=== PATIENT | female | born 1980 | race Caucasian/White ===

== ENCOUNTER → 2022-07-18 | Outpatient (CLI) | payer OTHER ==
[2022-07-19 09:13] LABS: IMMUNOGLOBULIN A, QN, SERUM <5 mg/dL (87-352); IMMUNOGLOBULIN G, QN, SERUM 1015 mg/dL (586-1602); IMMUNOGLOBULIN M, QN, SERUM <5 mg/dL (26-217)
[2022-07-19 16:09] LABS: % CD 3 POS. LYMPH. 91.1 % (57.5-86.2); % CD 4 POS. LYMPH. 36.5 % (30.8-58.5); % CD 8 POS. LYMPH. 56.4 % (12.0-35.5); % CD3+CD25+ LYMPHS 13.2 % (4.9-25.9); % CD8+CD57+ LYMPHS 29.9 % (0.0-11.3); ABS.CD3+CD25+ LYMPHS 211 /uL (79-535); ABS.CD8+CD57+ LYMPHS 478 /uL (0-254); ABSOLUTE CD 3 1458 /uL (622-2402); ABSOLUTE CD 4 HELPER 584 /uL (359-1519); ABSOLUTE CD 8 (SUPP) 902 /uL (109-897); BASOS 0 % (Not Estab.); CD4/CD8 RATIO 0.65 (0.92-3.72); EOS 1 % (Not Estab.); EOS (ABSOLUTE) 0.1 x10E3/uL (0.0-0.4); HEMATOCRIT 40.4 % (34.0-46.6); HEMOGLOBIN 13.2 g/dL (11.1-15.9); IMMATURE GRANULOCYTES 0 % (Not Estab.); LYMPHS 19 % (Not Estab.); LYMPHS (ABSOLUTE) 1.6 x10E3/uL (0.7-3.1); MCH 29.8 pg (26.6-33.0); MCHC 32.7 g/dL (31.5-35.7); MCV 91 fL (79-97); MONOCYTES 7 % (Not Estab.); MONOCYTES(ABSOLUTE) 0.6 x10E3/uL (0.1-0.9); NEUTROPHILS 73 % (Not Estab.); NEUTROPHILS (ABSOLUTE) 5.9 x10E3/uL (1.4-7.0); PLATELETS 173 x10E3/uL (150-450); RBC 4.43 x10E6/uL (3.77-5.28); RDW 13.8 % (11.7-15.4); WBC 8.1 x10E3/uL (3.4-10.8)
== END | disposition home or self-care (01) ==
LOC: LAB SHORT 06:00 → LAB 06:00
PROVIDERS: Internal Medicine
DX: R05.3 Chronic cough (principal); D83.9 Common variable immunodeficiency, unspecified
CPT/HCPCS: 36415; 82784; 86356; 86357; 86359; 86360

== ENCOUNTER → 2022-10-15 | Outpatient (CLI) | payer OTHER ==
[2022-10-16 15:07] LABS: Campylobacter Sp Not Detected (NOT DETECT)
[2022-10-16 15:08] LABS: Adenovirus F 40/41 Not Detected (NOT DETECT); Astrovirus Not Detected (NOT DETECT); Cryptosporidium Not Detected (NOT DETECT); Cyclospora Cayetanensis Not Detected (NOT DETECT); E. Coli O157 Not Detected (NOT DETECT); Entamoeba Histolytica Not Detected (NOT DETECT); Enteroaggregative E. coli-EAEC Detected (NOT DETECT); Enteropathogenic E. coli-EPEC Detected (NOT DETECT); Enterotoxigenic E. coli-ETEC Not Detected (NOT DETECT); Giardia Lamblia Not Detected (NOT DETECT); Norovirus GI/GII Not Detected (NOT DETECT); Plesiomonas Shigelloides Not Detected (NOT DETECT); Rotavirus A Not Detected (NOT DETECT); Salmonella Sp Detected (NOT DETECT); Sapovirus Not Detected (NOT DETECT); Shiga Toxin-prod E. coli-STEC Not Detected (NOT DETECT); Shigella/Enteroin E. coli-EIEC Not Detected (NOT DETECT); Vibrio Cholerae Not Detected (NOT DETECT); Vibrio Sp Not Detected (NOT DETECT); Yersinia Enterocolitica Not Detected (NOT DETECT)
== END | disposition home or self-care (01) ==
LOC: LAB 17:30 → LAB SHORT 17:30
PROVIDERS: Physician Assistant Surgical
DX: R19.7 Diarrhea, unspecified (principal)
CPT/HCPCS: 87507

== ENCOUNTER → 2022-10-15 | Outpatient (CLI) | payer OTHER | END | disposition home or self-care (01) | LOC: LAB SHORT 16:49 → LAB 16:49 | DX: R19.7 Diarrhea, unspecified (principal) | CPT/HCPCS: 87086 ==